=== PATIENT | male | born 1945 | race Caucasian/White ===

== ENCOUNTER 2019-05-21 09:18 | Emergency (ER) | payer MEDICARE ==
--- OUTSIDE RECORDS SUMMARY | 2019-05-21 10:08 | XMS REPORT | Continuity of Care Document ---
:1945 External Reference #:[id number] Author Name Laboratory (transmitted by agent of provider Franchesca Woodard) Address [address] [place] [address], [address] [place] [address] Care Team Providers Name Role Phone Keith Peralta M.D. - Care Team Information Vinyl Installer Ophthalmology Lillian Mcbride M.S.F.N.P. - Nurse Care Team Information Vinyl Installer Practitioner Jaret Barton DO - Urology Care Team Information Vinyl Installer [phone] Problems Active Problems Provider Date Benign prostatic hypertrophy without outflow Nabil Junior M.D. Onset: 03/18 obstruction Impaired fasting glycaemia Nabil Junior M.D. Onset: 10/10/2014 Mild cognitive disorder Nabil Junior M.D. Onset: 11/15/2018 Screening for malignant neoplasm of prostate Nabil Junior M.D. Onset: 11/15 Social History Type Date Description Comments Sex Unknown Tobacco Use Start: Unknown Never Smoked Cigarettes ETOH Use Occasionally consumes alcohol Recreational Drug Use Denies Drug Use Tobacco Use Start: Unknown Patient has never smoked Smoking Status Reviewed: 11/15/18 Patient has never smoked Allergies, Adverse Reactions, Alerts Active Allergies Reaction Severity Comments Date NKDA 03/15/2014 Ragweed Moderate Sneezing, burning eyes, childhoold 12/05/2012 allergy Medications Active Medications SIG Qnty Indications Ordering Provider Date Prednisone 3 po qd for 2 13tabs R05 Nabil Junior, 03/20/2019 10mg Tablets days, then 2 po M.D. q for 2 days, then 1 po qd for 2 days, then 1/2 po q for 2 days,off Galantamine 1 po bid (dose 60tabs G31.84 Nabil Junior, 11/15/2018 Hydrobromide increase) M.D. 8mg Tablets Acidophilus take 1 tablet by 60caps Nabil Junior, 05/13/2018 Capsules mouth once daily M.D. Tamsulosin HCL 1 by mouth every 90caps N40.0 Nabil Junior, 05/13/2018 0.4mg day M.D. Capsules Finasteride Take One Tablet 90tabs N40.0 Nabil Junior, 03/21/2012 5mg Tablets By Mouth Every M.D. Day Vitamin D3 [address] [facility] 12/25/2011 2000Unit Osika-Michales, Tablets R.N., F.N.P. Multi Vitamin Mens 1 tab PO Q day [facility] 12/23/2011 Osika-Michales, Tablets R.N., F.N.P. Aspirin [address] [facility] 12/23/2011 325mg Chewtabs Osika-Michales, R.N., F.N.P. Melatonin 1 by mouth every Unknown 5mg Capsules night at bedtime as needed History Medications Azithromycin 2 tabs by mouth 6tabs R05 Diane Brown, 12/16/2018 - 250mg Tablets x1 day, 1 tab RN, WILLIAN 03/20/2019 by mouth x4 days Medications Administered in Office Medication SIG Qnty Indications Ordering Provider Date Inj, Kenalog, Triamcinolone Gui Dang DO 02/04/2016 Acetonide Per 10 MG, [facility] 4351-2233-26 Injection Admin Of Vaccine,One Vaccine Injection/BP Schedule 12/28/2014 Injection Admin Of Pneumococcal Vaccine Injection/BP Schedule 06/26/2014 Injection Admin Of Pneumococcal Vaccine Nabil Junior M.D. 06/08/2013 Injection Admin Of Vaccine,One Vaccine Nabil Junior M.D. 05/08/2008 Injection Immunizations CPT Code Status Date Vaccine Lot # [id number] Given 11/15/2018 Fluad 0.5ML, Ages 65Yrs And Older,Flu Vaccine,[facility] [id number] [id number] Given 12/24/2017 Fluad 0.5ML, Ages 65Yrs And Older,Flu Vaccine,[facility] 28689-059-47 71483 Given 01/19/2017 Flucelvax Quad, 0.5mL, [facility] [address]-85 [id number] [id number] Given 01/16/2016 Afluria, 0.5mL Flu Vaccine [id number] Given 12/28/2014 Tdap, adacel vaccine [facility] 48720-957-37 .50ML [id number] Given 06/26/2014 Prevnar 13, [facility] 7755-2697-90. 0[place] [address] Given 06/08/2013 Pneumococcal Vaccine, [facility] 8768-4594-66, 0.5 ML [id number] Given 05/08/2008 Tetanus&Diptheria Toxoid Immunization(deleted 2012) Vital Signs Date Vital Result Comment 03/20/2019 4:02pm Weight 176.00 lb Height 67.75 inches 5'7.75" BP Systolic 140 mmHg BP Diastolic 80 mmHg Body Temperature 99.9 F Heart Rate 80 /min Respiratory Rate 18 /min BMI (Body Mass Index) 27.0 kg/m2 12/16/2018 4:05pm Weight 173.38 lb Height 67.75 inches 5'7.75" BP Systolic 124 mmHg BP Diastolic 72 mmHg Body Temperature 98.3 F Heart Rate 64 /min O2 % BldC Oximetry 98 % BMI (Body Mass Index) 26.6 kg/m2 Results Test Acquired Date Facility Test Result H/L Range Note Influenza A And 03/20/2019 In Office Labs Influenza A POSITIVE Negative B (Inoffice) Rapid Influenza B Rapid Test NEGATIVE Negative Procedures Date Code Description Status 10/07/2015 31686207 Colonoscopy Completed 03/08/2004 68819498 Colonoscopy Completed Medical Devices Description No Information Available Encounters Type Date Location Provider Dx Diagnosis Office Visit 04/24/2019 Main Office Chronic Care N40.0 Benign prostatic 1:00p Schedule #2 hyperplasia without lower urinry tract symp R73.01 Impaired fasting glucose Office Visit 03/23/2019 1:00p Main Office Chronic Care N40.0 Benign prostatic Schedule #2 hyperplasia without lower urinry tract symp R73.01 Impaired fasting glucose Office Visit 03/20/2019 4:00p Main Office Nabil Junior M.D. R05 Cough R50.9 Fever, unspecified J10.1 Flu due to oth ident influenza virus w oth resp manifest Office Visit 12/26/2018 1:30p Main Office Chronic Care N40.0 Benign prostatic Schedule #2 hyperplasia without lower urinry tract symp E78.2 Mixed hyperlipidemia R73.01 Impaired fasting glucose Office Visit 12/16/2018 4:00p Main Office Diane Brown RN, [employer] R05 Cough Z71.3 Dietary counseling and surveillance Office Visit 11/22/2018 1:30p Main Office Chronic Care N40.0 Benign prostatic Schedule #2 hyperplasia without lower urinry tract symp R73.01 Impaired fasting glucose E78.2 Mixed hyperlipidemia Assessments Date Code Description Provider 04/24/2019 N40.0 Benign prostatic hyperplasia without lower Chronic Care Schedule #2 urinary tract sym 04/24/2019 R73.01 Impaired fasting glucose Chronic Care Schedule #2 03/23/2019 N40.0 Benign prostatic hyperplasia without lower Chronic Care Schedule #2 urinary tract sym 03/23/2019 R73.01 Impaired fasting glucose Chronic Care Schedule #2 03/20/2019 R05 Cough Laboratory 03/20/2019 R05 Moe Junior M.D. 03/20/2019 R50.9 Fever, unspecified Laboratory 03/20/2019 R50.9 Fever, unspecified Nabil Junior M.D. 03/20/2019 J10.1 Influenza due to other identified Laboratory influenza virus with other respiratory manifestations 03/20/2019 J10.1 Influenza due to other identified Nabil Junior M.D. influenza virus with other respiratory manifestations 12/26/2018 N40.0 Benign prostatic hyperplasia without lower Chronic Care Schedule #2 urinary tract sym 12/26/2018 E78.2 Mixed hyperlipidemia Chronic Care Schedule #2 12/26/2018 R73.01 Impaired fasting glucose Chronic Care Schedule #2 12/16/2018 R05 Cough Diane Brown RN, [employer] 12/16/2018 Z71.3 Dietary counseling and surveillance Diane Brown RN, [employer] 11/22/2018 N40.0 Benign prostatic hyperplasia without lower Chronic Care Schedule #2 urinary tract sym 11/22/2018 R73.01 Impaired fasting glucose Chronic Care Schedule #2 11/22/2018 E78.2 Mixed hyperlipidemia Chronic Care Schedule #2 Plan of Treatment Future Appointment(s):05/22/2019 4:30 pm - Nabil Junior M.D. at Main [id number] 1:00 pm - Chronic Care Schedule #2 at Main Oulfjf5911/21/2019 4:30 pm - Nabil Junior M.D. at Main Twmykq1903/20/2019 - Nabil Junior M.D.R05 CoughNew Medication:Prednisone 10 mg - 3 po qd for 2 days, then 2 po q for 2 days, then 1 po qd for 2 days, then 1/2 po q for 2 days,offR50.9 Fever, ndghfqvrbnmZ19.1 Influenza due to other identified influenza virus with other respiratory manifestations Functional Status Description No Information Available Mental Status Description No Information Available Referrals Description No Information Available
[2019-05-21 10:19] VITALS: BP 110/72
--- NOTE | 2019-05-21 10:35 | UC ---
Throat Pain/Nasal Celso HPI - HPI Summary HPI Summary: 73-year-old male comes in with a chief complaint of cough chest congestion and fatigue. Patient reports that he had influenza 70 weeks ago when he was quite ill during that period. Since that time he doesn't feel like he's got back to 100% of health. 5 days ago patient started feeling ill again and tightness in the chest which reminded him of influenza. He does have some sputum production. - History of Current Complaint Chief Complaint: UCRespiratory Stated Complaint: COUGH, CONGESTION Time Seen by Provider: 05/21/19 10:07 Pain Intensity: 0 - Allergies/Home Medications Allergies/Adverse Reactions: Allergies Allergy/AdvReac Type Severity Reaction Status Date / Time No Known Allergies Allergy Verified 05/21/19 10:18 Home Medications: Home Medications Azithromyxin ZACH (NF) [Z-Zach (Zithromax) 250 mg tabs #6] 2 tab PO .TODAY, THEN 1 DAILY #6 tab 05/21/19 [Rx] Tamsulosin CAP* [Flomax CAP*] 1 tab DAILY 05/21/19 [History Confirmed 05/21/19] PMH/Surg Hx/FS Hx/Imm Hx Previously Healthy: Yes - BPH - Surgical History Surgical History: None - Family History Known Family History: Positive: Non-Contributory - Social History Alcohol Use: Daily Alcohol Amount: "couple beers every other day" Substance Use Type: None Smoking Status (MU): Never Smoked Tobacco Review of Systems All Other Systems Reviewed And Are Negative: Yes Constitutional: Positive: Other - SEE HPI Skin: Positive: Negative Eyes: Positive: Negative ENT: Positive: Nasal Discharge Respiratory: Positive: Cough, Other - SEE HPI Cardiovascular: Positive: Other - SEE HPI Gastrointestinal: Positive: Negative Motor: Positive: Negative Neurovascular: Positive: Negative Musculoskeletal: Positive: Negative Neurological/Mental Status: Positive: Negative Psychological: Positive: Negative Is Patient Immunocompromised?: No Physical Exam Triage Information Reviewed: Yes Appearance: No Pain Distress, Well-Nourished, Ill-Appearing - MILD Vital Signs: Initial Vital Signs Temp 97.2 F 05/21/19 10:15 Pulse 62 05/21/19 10:15 Resp 16 05/21/19 10:15 BP 110/72 05/21/19 10:15 Pulse Ox 98 05/21/19 10:15 Vital Signs Reviewed: Yes Eye Exam: Normal Eyes: Positive: Conjunctiva Clear ENT: Positive: Pharynx normal, Nasal congestion, TMs normal Neck: Positive: Supple Respiratory: Positive: Lungs clear, Normal breath sounds, No respiratory distress Cardiovascular: Positive: RRR Musculoskeletal: Positive: Strength Intact, ROM Intact Neurological: Positive: Alert, Muscle Tone Normal Psychological: Positive: Age Appropriate Behavior Skin Exam: Normal Throat Pain/Nasal Course/Dx - Course Course Of Treatment: Professor Of Special Education: Jeff Yu, ([id number]) Sales And Marketing Analyst: ANGEL (MICHELLEANCE) Report Date: 05/21/2019 11:03:00 Report Status: Final Start of Report Content Patient Name: JATINDER IBRAHIM Medical Record#: [id number] Ordering Physician: Dion Burkett MD Acct.#: [id number] : 1945 Age : 73 Sex: M Location: [facility] Exam Date: 05/21/19 1034 ADM Status : REG ER Order Information: CHEST PA LAT 2 VWS Accession Number: [id number] CPT : 76647 INDICATION: Cough and congestion COMPARISON: None TECHNIQUE: PA and lateral views of the chest were obtained. FINDINGS: The heart and mediastinum are normal in size and contour. The lungs are grossly clear. There is no evidence of large pleural effusion. Visualized bones are normal for the patient' s age. There is no radiographic evidence of free air beneath the diaphragm IMPRESSION: No radiographic evidence of acute cardiopulmonary disease. <Electronically signed by Jeff Yu MD in OV> 05/21/19 1059 Dictated By: Jeff Yu MD Dictated Date/ Time: 05/21/19 1058 Transcribed Date/Time: 05/21/19 105 Copy to: CC:Nabil Junior MD; Dion Burkett MD Imaging - [facility] Imaging - [facility] Imaging - [facility] [address] [address] [place], [place] [address] [place] [id number] ph [phone]) ph ([phone]) ph ([phone]) End of Report Content I discussed the chest x-ray with the patient. Patient does have chest congestion and infectious symptoms. At this time it does not appear that his chest tightness is due to a cardiac cause. We discussed antibiotics and the role in treatment of infection and the patient prefers to be on an antibiotic at this time. Patient is to follow-up with his primary care doctor tomorrow. Patient is to get reevaluated sooner if worse or any questions or concerns. - Differential Dx/Diagnosis Provider Diagnosis: Bronchitis Discharge ED - Sign-Out/Discharge Documenting (check all that apply): Patient Departure All imaging exams completed and their final reports reviewed: Yes - Discharge Plan Condition: Stable Disposition: HOME Prescriptions: Azithromyxin ZACH (NF) [Z-Zach (Zithromax) 250 mg tabs #6] 2 tab PO .TODAY, THEN 1 DAILY #6 tab Patient Education Materials: Acute Bronchitis (ED) Referrals: Vernon LOPEZ,Nabil [Primary Care Provider] - Additional Instructions: FOLLOW UP WITH YOUR DOCTOR TOMORROW SCHEDULED. GET REEVALUATED SOONER IF NOT IMPROVED OR WORSE; CHEST PAIN, SHORTNESS OF BREATH , YOU FEEL ILL OR ANY QUESTIONS OR CONCERNS. - Billing Disposition and Condition Condition: STABLE Disposition: Home
[2019-05-21 10:43] LABS: Influenza A Molecular Negative (Negative); Influenza B Molecular Negative (Negative)
== END 2019-05-21 11:25 | disposition home or self-care (01) ==
LOC: UCCORT 09:18
DX: J40 Bronchitis, not specified as acute or chronic (principal); N40.0 Benign prostatic hyperplasia without lower urinary tract symptoms; Z79.899 Other long term (current) drug therapy
CPT/HCPCS: 71046; 99202; G0463